=== PATIENT | female | born 1990 ===

== ENCOUNTER 2021-06-27 18:23 | Emergency (ER) | payer SELFPAY ==
[2021-06-27 20:21] VITALS: BP 111/76
== END 2021-06-28 09:23 | disposition left against medical advice (07) ==
LOC: ED 18:23
DX: R58 Hemorrhage, not elsewhere classified (principal); Z53.21 Procedure and treatment not carried out due to patient leaving prior to being seen by health care provider

== ENCOUNTER 2021-08-15 18:40 | Outpatient (CLI) | payer SELFPAY ==
[2021-08-15] MEDS: LACTATED RINGERS 1,000 ML IV SCH ×2 (19:15→23:36)
[2021-08-15 19:20] LABS: Eosinophils # (Auto) 0.1 K/mm3 (0.0-0.4); Eosinophils % (Auto) 0.7 % (0.0-4.3); Hematocrit 34.4 % (30.3-42.9); Hemoglobin 11.1 gm/dl (10.1-14.3); Mean Corpuscular HGB Conc 32 % (30-34); Mean Corpuscular Volume 86 fl (79-97)
[2021-08-15 19:38] LABS: Basophils % (Auto) 0.2 % (0.0-1.8); Lymphocytes # (Auto) 2.3 K/mm3 (1.2-5.4); Lymphocytes % (Auto) 28.2 % (13.4-35.0); Monocytes # (Auto) 0.7 K/mm3 (0.0-0.8); Monocytes % (Auto) 8.7 % (0.0-7.3); Platelet Count 220 K/mm3 (140-440); Red Cell Distribution Width 15.5 % (13.2-15.2)
[2021-08-15 20:23] LABS: Bilirubin,Urine NEG (Negative); Blood,Urine NEG (Negative); Color,Urine Yellow (Yellow); Mucus,Urine FEW /HPF; Protein,Urine <15 mg/dL mg/dL (Negative); Urobilinogen,Urine < 2.0 mg/dL (<2.0)
[2021-08-15 20:32] LABS: Amphetamine Screen,Urine Negative; Benzodiazepines Screen,Urine Negative; Cannabinoid Screen,Urine Negative; Cocaine Screen,Urine Negative; Methadone Screen,Urine Negative; Opiate Screen,Urine Negative
[2021-08-16] MEDS: LACTATED RINGERS 1,000 ML IV SCH (06:54)
[2021-08-16] MEDS ORDERED: SODIUM CHLORIDE 0.9% 1000 ML 1,000 ML IV ONE (07:12)
[2021-08-16 08:53] LABS: Basophils % (Auto) 0.2 % (0.0-1.8); Eosinophils # (Auto) 0.1 K/mm3 (0.0-0.4); Hematocrit 23.8 % (30.3-42.9); Lymphocytes # (Auto) 2.4 K/mm3 (1.2-5.4); Mean Corpuscular HGB Conc 34 % (30-34); Mean Corpuscular Volume 86 fl (79-97); Monocytes # (Auto) 0.6 K/mm3 (0.0-0.8); Platelet Count 162 K/mm3 (140-440); Red Blood Count 2.77 M/mm3 (3.65-5.03); Red Cell Distribution Width 15.7 % (13.2-15.2)
--- NOTE | 2021-08-16 09:07 | Ultrasound Report ---
ULTRASOUND OBSTETRIC INDICATION / CLINICAL INFORMATION: vaginal bleeding, previa. Clinical Gestational Age (GA) in weeks, days: 20, 3 TECHNIQUE: Transabdominal. COMPARISON: None available. FINDINGS: Single intrauterine . Biparietal Diameter = 4.1 cm = 18, 4 weeks, days Head Circumference = 16.1 cm = 19, 0 weeks, days Abdominal Circumference = 14.4 cm = 19, 5 weeks, days Femur Length = 3.0 cm = 19, 1 weeks, days Average Ultrasound Age (AUA) = 19, 1 weeks, days Heart Rate: 165 beats per minute. Estimated Weight in grams (if calculated): 288 Estimated Weight Growth Percentile (if calculated): 6 Position: breech. Placenta: anterior and complete previa. Amniotic Fluid Volume: normal The cervical length is not well seen on this examination. IMPRESSION: 1. Single, living intrauterine with estimated sonographic age of 19, 1 weeks, days. 2. Complete placenta previa. Signer Name: Myron Kim DO Signed: 08/15/2021 11:49 PM Workstation Name: [id number]
[2021-08-16 14:27] VITALS: BP 86/51
== END 2021-08-16 16:00 | disposition home or self-care (01) ==
LOC: TRG 18:40 → APU 18:42 → LD 20:44 → TRG 08-16 16:00
PROVIDERS: ATTEND Obstetrics & Gynecology
DX: O44.12 Complete placenta previa with hemorrhage, second trimester (principal); O32.1XX0 Maternal care for breech presentation, not applicable or unspecified; Z3A.20 20 weeks gestation of pregnancy
CPT/HCPCS: 36415; 76805; 80307; 81001; 85025; 86592; 86706; 86762; 86850; 86900; 86901; 87806; 96360; 96361; J7030; J7120; 76810; 76817